=== PATIENT | male | born 1975 | race Caucasian/White ===

== ENCOUNTER 2016-08-20 01:29 | Emergency (ER) | payer BC ==
[~2016-08-20] VITALS: Ht 167.6 cm; Wt 77.1 kg
--- NOTE | 2016-08-20 01:58 | NUR ---
Patient eloped from facility. ER physician notified. In Stable condition, no distress noted.
--- NOTE | 2016-08-20 02:00 | NUR ---
Patient changed his decision to elope, stayed in facility for care. In bed, comfortable, no distress noted.
[2016-08-20] MEDS ORDERED: IV NORMAL SALINE 1000 ML BAG IV ONE (02:15)
[2016-08-20] MEDS ORDERED: ONDANSETRON 4 MG/2 ML VIAL IV ONE (02:15)
[2016-08-20] MEDS ORDERED: ONDANSETRON 4 MG/2 ML VIAL ONE (02:29)
--- NOTE | 2016-08-20 03:13 | NUR ---
Patient discharged to home in stable conditon. Written and verbal after care instructions given. Patient verbalizes understanding of instructions. Ambulated from ER with stable gait. All belongings with patient. patients will drive patient home.
[2016-08-20 03:15] VITALS: BP 128/81
== END 2016-08-20 03:15 | disposition home or self-care (01) ==
LOC: ER 01:39
DX: K29.70 Gastritis, unspecified, without bleeding (principal)
CPT/HCPCS: A4663; J2405; J7030